=== PATIENT | male | born 1965 | race Caucasian/White ===

== ENCOUNTER 2016-08-27 14:36 | Emergency (ER) | payer OTHER, MEDICAID ==
[2016-08-27 15:03] VITALS: O2SAT 93
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
[2016-08-27 16:34] VITALS: BP 141/94; PULSE 72; RESP 14; TEMP 98.6
== END 2016-08-27 16:31 | disposition home or self-care (01) ==
DX: S22.31XA Fracture of one rib, right side, initial encounter for closed fracture (principal); S09.90XA Unspecified injury of head, initial encounter; V89.2XXA Person injured in unspecified motor-vehicle accident, traffic, initial encounter; Y92.410 Unspecified street and highway as the place of occurrence of the external cause